=== PATIENT | male | born 2000 | race Caucasian/White ===

== ENCOUNTER 2023-12-07 20:23 | Inpatient (IN) | payer SELFPAY ==
[2023-12-07 20:24] VITALS: BP 141/85; PULSE 95; RESP 15; TEMP 37.2; O2SAT 97; BMI 27.9
--- NOTE | 2023-12-07 20:57 | ECG_ITS ---
[facility] Test Date: 2023-12-07 Pat Name: Ra Burkett Department: Room: Gender: Male Public Works Manager: : 2000 Requested By: Kahlil Lala Order Number: [id number] Cuello MD: Red Aleman M.D. Measurements Intervals [place] Rate: 54 P: 20 CT: 126 QRS: 60 QRSD: 105 T: 14 QT: 413 QTc: 393 Interpretive Statements SINUS BRADYCARDIA WITH SINUS ARRHYTHMIA No previous ECG available for comparison Electronically Signed On 12-09-2023 7:39:31 CDT by Red Aleman M.D. [email or web address]
--- NOTE | 2023-12-07 21:00 | ED_ITS ---
HPI - Alcohol 2 General: Chief Complaint: Alcohol Stated Complaint: ETOH Time Seen by Provider: 12/07/23 20:36 History of Present Illness: 23-year-old male he says he has been dri nking heavily for the last couple of weeks. Essentially constantly for the last 3 days. His last drink was 45 minutes prior to ambulance arrival and [place] which was probably around 6 PM. He is not suicidal or homicidal. He would like to stop drinking. He is feeling sick to his stomach. He has not vomited. No other medical problems. Associated symptoms: Deny abdominal pain or vomiting Related Data Home Medications Medication Instructions Recorded Confirmed No Known Home Medications 12/07/23 12/07/23 Allergies Allergy/AdvReac Type Severity Reaction Status Date / Time No Known Allergies Allergy Verified 12/07/23 20:37 Review of Systems 2 Const: Denies: fever(s), chills or body aches Eyes: Denies: change in vision Card: Denies: chest pain or palpitations Resp: Denies: dyspnea, productive cough, non-productive cough or wheezing GI: Denies: abdominal pain, vomiting, diarrhea or hematochezia Skin/Breast: Denies: rash Neuro: Denies: headache(s), weakness in extremities, dizziness or confusion Physical Exam 2 Const: COMMON NORMALS: no acute distress GENERAL APPEARANCE: cooperative and odor of alcohol detected; not in distress, not lethargic, not ill appearing and not frail appearing O RIENTATION/CONSCIOUSNESS: not lethargic HENMT: COMMON NORMALS: normocephalic, atraumatic and Normal external nose present HEAD & SCALP: normocephalic and atraumatic FACE & SINUS: normal facial exam and face symmetric NOSE: Normal external nose present Eye: COMMON NORMALS: Equal, round and reactive pupils present and EOMs intact bilaterally PUPIL: Yes Equal, round and reactive pupils present Neck/C-Spine: GENERAL: Yes trachea midline Chest: CHEST: Yes Symmetrical chest wall rise Resp: COMMON NORMALS: normal respiratory effort, No retractions, No use of accessory muscles and clear to auscultation bilaterally AUSCULTATION: clear to auscultation bilaterally Cardio: COMMON NORMALS: regular rate and regular rhythm RATE: regular rate RHYTHM: regular rhythm GI: COMMON NORMALS: Normal to inspection, nondistended, normoactive bowel sounds present Extremity: COMMON NORMALS: no pedal edema Neuro: SASKIA COMA SCALE: document GCS findings [place] coma scale eye opening: Spontaneous [place] coma scale verbal response: Orientated [place] coma scale motor response: Obey commands [place] coma scale total score: 15 S ENSORIUM/ORIENTATION: No lethargic SENSORY EXAM: Yes extremities (intact) Psych: COMMON NORMALS: speech normal SPEECH: Yes normal speech Skin: COMMON NORMALS: no rashes or lesions noted GENERAL SKIN EXAM: no rashes or lesions noted Course 2 Vital Signs: Vital signs: Vital Signs Temperature 98.0 F 12/07/23 23:43 Pulse Rate 69 12/07/23 23:43 Respiratory Rate 16 12/07/23 23:43 Blood Pressure 118/76 12/07/23 23:43 Pulse Oximetry 94 12/07/23 23:43 Oxygen Delivery Me thod Room Air 12/07/23 23:43 MDM - Alcohol Medical Decision Making 23-year-old male who is intoxicated with alcohol. Vitals are stable. CBC is normal. BMP is normal. Tylenol salicylates are negative. Liver enzymes are minimally elevated. Total bili is 0.5. Ethyl alcohol is 273. He is hydrated. Given Zofran. He is not suicidal or homicidal. He is beginning to get agitated. No significant tremor as yet. He is asking for medical detoxification from alcohol given his long history of heavy drinking. His mother is here requesting the same. Due to his risk of complications from alcohol withdrawal, he will be admitted medically to the hospital. Hospitalist is aware and will see the patient on the floor. Lab Data 12/07/23 21:28 12/07/23: Laboratory Results WBC 7.59 10^3/uL (3.29-11.43) 12/07/23 21: RBC 5.39 10^6/uL (3.85-5.65) 12/07/23: Hgb 16.40 g/dL (11.27-16.99) 12/07/23: Hct 47.0 % (37-53) 12/07/23 21: MCV 87.2 fl (82-101) 12/07/23 21: MCH 30.4 pg (27-33) 12/07/23 21: MCHC 34.9 g/dL (30-55) 12/07/23 21: RDW 11.3 % (12.1-15.1) L 12/07/23 21: Plt Count 324 10^3/cmm (157-399) 12/07/23 21: MPV 10.1 fL (7.4-10.4) 12/07/23 21: Neut % (Auto) 46.0 % 12/07/23 21: Lymph % (Auto) 44.8 % 12/07/23 21: [place] % (Auto) 6.1 % 12/07/23 21:28 Eos % (Auto) 2.2 % 12/07/23 21: Baso % (Auto) 0.8 % 12/07/23 21: Neut # (Auto) 3.49 10^3/uL (1.8-7.7) 12/07/23: Lymph # (Auto) 3.4 10^3/uL (0.8-4.8) 12/07/23 21: [place] # (Auto) 0.5 10^3/uL (0.2-0.9) 12/07/23 21: Eos # (Auto) 0.2 10^3/uL (0.0-0.8) 12/07/23 21: Baso # (Auto) 0.1 10^3/uL (0.0-0.1) 12/07/23: Nucleated RBC % (auto) 0 % 12/07/23 21: Nucleated RBCs # 0.0 /100WBC 12/07/23 21: Sodium 145 mmol/L (136-145) 12/07/23 21: Potassium 3.9 mmol/L (3.5-5.1) 12/07/23 21: Chloride 107 mmol/L (98-107) 12/07/23 21: Carbon Dioxide 23 mmol/L (22-29) 12/07/23 21: Anion Gap 18.9 (5-19) 12/07/23 21:28 BUN 12 mg/dL (6-20) 12/07/23 21: Creatinine 1.1 mg/dL (0.7-1.2) 12/07/23 21: GFR Calculation 82.2 mL/min (90-130) L 08/11/24 21:28 Glucose 105 mg/dL (65-115) 12/07/23 21:28 Calculated Osmolality 300 mOsm/kg (285-295) H 12/07/23 21:28 Calcium 9.0 mg/dL (8.5-10.5) 12/07/23 21:28 Total Bilirubin 0.5 mg/dL (0.15-1.2) 12/07/23 21:28 AST 48 U/L (0-40) H 12/07/23 21:28 ALT 51 U/L (0-41) H 12/07/23 21:28 Alkaline Phosphatase 79 U/L (40-130) 12/07/23 21:28 Total Protein 7.6 g/dL (6.6-8.7) 12/07/23 21:28 Albumin 4.7 g/dL (3.5-5.2) 12/07/23 21:28 Globulin 2.9 g/dL (1.3-4.6) 12/07/23 21:28 Salicylates < 0.3 mg/dL (3-10) L 12/07/23 21:28 Acetaminophen < 5.0 ug/mL (10-30) L 12/07/23 21:28 Ethyl Alcohol 273 mg/dL (0-10) H 12/07/23 21:28 No radiology studies performed this visit Discharge Plan Discharge Patient Disposition: Admitted As Inpatient Admit Provider: Freya Franco Clinical Impression: Alcoholic intoxication Condition: Fair Coding Level of Care Code ED Pump Erector for g Margarito
[2023-12-07 21:39] LABS: Basophils # 0.1 10^3/uL (0.0-0.1); Basophils % 0.8 %; Eosinophils # 0.2 10^3/uL (0.0-0.8); Eosinophils % 2.2 %; Lymphocytes # 3.4 10^3/uL (0.8-4.8); Lymphocytes % 44.8 %; Mean Corpuscular HGB Conc 34.9 g/dL (30-55); Mean Corpuscular Hemoglobin 30.4 pg (27-33); Mean Corpuscular Volume 87.2 fl (82-101); Mean Platelet Volume 10.1 fL (7.4-10.4); Monocytes # 0.5 10^3/uL (0.2-0.9); Monocytes % 6.1 %; Neutrophils # 3.49 10^3/uL (1.8-7.7); Nucleated Red Blood Cells % 0 %; Platelet Count 324 10^3/cmm (157-399); Red Blood Count 5.39 10^6/uL (3.85-5.65); Red Cell Distribution Width 11.3 % (12.1-15.1); White Blood Count 7.59 10^3/uL (3.29-11.43)
[2023-12-07] MEDS: ondansetron 2 mg/ML SDV 2 mL 4 MG IVP (21:48)
[2023-12-07] MEDS: sodium chloride 0.9% 1,000 ML 999 ML IV (21:48)
[2023-12-07 21:57] VITALS: BP 112/67; PULSE 82; RESP 16; O2SAT 94
[2023-12-07 22:01] LABS: Alanine Aminotransferase 51 U/L (0-41); Albumin Level 4.7 g/dL (3.5-5.2); Alcohol Level 273 mg/dL (0-10); Alkaline Phosphatase 79 U/L (40-130); Anion Gap 18.9 (5-19); Aspartate Amino Transferase 48 U/L (0-40); Blood Urea Nitrogen 12 mg/dL (6-20); Carbon Dioxide 23 mmol/L (22-29); Chloride 107 mmol/L (98-107); Creatinine Clr Calc Pharmacy 115.9713; Globulin 2.9 g/dL (1.3-4.6); Glomerular Filtration Rate 82.2 mL/min (90-130); Glucose 105 mg/dL (65-115); Osmolality Calculated 300 mOsm/kg (285-295); Potassium 3.9 mmol/L (3.5-5.1); Sodium 145 mmol/L (136-145); Total Bilirubin 0.5 mg/dL (0.15-1.2); Total Protein 7.6 g/dL (6.6-8.7)
[2023-12-07 22:07] LABS: Acetaminophen < 5.0 ug/mL (10-30); Salicylate < 0.3 mg/dL (3-10)
[2023-12-07 23:00] VITALS: PULSE 81; RESP 18; O2SAT 97
[2023-12-07] MEDS: LORazepam 2 mg/mL INJ 1 mL IVP (23:11)
[2023-12-07] MEDS: haloperidol inj 5 mg/mL INJ 1 mL 3 MG IVP (23:13)
[2023-12-07 23:27] LABS: Charge for UA Resulting for Rev
[2023-12-07 23:31] LABS: Bilirubin Urine Negative (Negative); Blood Urine Negative (Negative); Glucose Urine UA Negative (Normal); Ketones Urine Negative (Negative); Leukocyte Esterase Urine Negative (Negative); Nitrate Urine Negative (Negative); Protein Urine Trace (Negative); Specific Gravity, Urine 1.019 (1.005-1.030); Urine Appearance Cloudy (CLEAR); Urine Color Yellow (Yellow); pH Urine 8.5 (5-7)
[2023-12-07 23:36] LABS: Bacteria Urine None Seen /hpf; RBC Urine 0-2 /hpf (0-2); Squamous Epithelial Cell Urine 0-5 /hpf (0-5); WBC Urine 0-5 /hpf (0-5)
[2023-12-07 23:38] LABS: Amphetamines Screen Urine Negative (Negative); Barbiturates Screen Urine Negative (Negative); Benzodiazepines Screen Urine Negative (Negative); Cocaine Screen Urine Negative (Negative); Opiate Screen Urine Negative (Negative); PCP Screen Urine Negative (Negative); THC Screen Urine Negative (Negative)
[2023-12-07 23:43] VITALS: BP 118/76; PULSE 69; RESP 16; TEMP 36.7; O2SAT 94
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
--- NOTE | 2023-12-08 02:25 | PC.NURSE ---
Pt transferred to CT at this time, will await return to room.
[2023-12-08] MEDS: chlordiazePOXIDE 25 mg Capsule PO (02:39)
[2023-12-08] MEDS: sodium chloride 0.9% 1,000 ML 75 ML IV ×2 (02:53→15:27)
--- NOTE | 2023-12-08 03:06 | PC.NURSE ---
Pt returned from CT w/o difficulty. Pt's mother remains at bedside.
[2023-12-08 04:00] VITALS: BP 117/65; PULSE 78; RESP 19; TEMP 36.8; O2SAT 97
[2023-12-08 04:28] LABS: Basophils # 0.1 10^3/uL (0.0-0.1); Basophils % 0.6 %; Eosinophils # 0.4 10^3/uL (0.0-0.8); Eosinophils % 4.9 %; Hematocrit 44.4 % (37-53); Lymphocytes # 4.1 10^3/uL (0.8-4.8); Lymphocytes % 51.8 %; Mean Corpuscular HGB Conc 33.3 g/dL (30-55); Mean Corpuscular Hemoglobin 30.2 pg (27-33); Mean Corpuscular Volume 90.6 fl (82-101); Mean Platelet Volume 10.6 fL (7.4-10.4); Monocytes # 0.6 10^3/uL (0.2-0.9); Monocytes % 7.4 %; Neutrophils # 2.78 10^3/uL (1.8-7.7); Neutrophils % 35.2 %; Nucleated Red Blood Cells % 0 %; Platelet Count 280 10^3/cmm (157-399); Red Cell Distribution Width 11.3 % (12.1-15.1); White Blood Count 7.93 10^3/uL (3.29-11.43)
[2023-12-08 04:44] LABS: Alanine Aminotransferase 42 U/L (0-41); Albumin Level 4.4 g/dL (3.5-5.2); Alkaline Phosphatase 66 U/L (40-130); Anion Gap 18.6 (5-19); Aspartate Amino Transferase 42 U/L (0-40); Blood Urea Nitrogen 12 mg/dL (6-20); Calcium 8.5 mg/dL (8.5-10.5); Carbon Dioxide 22 mmol/L (22-29); Chloride 109 mmol/L (98-107); Creatinine Clr Calc Pharmacy 123.3589; Globulin 2.2 g/dL (1.3-4.6); Glomerular Filtration Rate 91.8 mL/min (90-130); Glucose 87 mg/dL (65-115); Osmolality Calculated 301 mOsm/kg (285-295); Potassium 3.6 mmol/L (3.5-5.1); Sodium 146 mmol/L (136-145); Total Bilirubin 0.6 mg/dL (0.15-1.2); Total Protein 6.6 g/dL (6.6-8.7)
[2023-12-08 04:59] LABS: Hepatitis A Antibody IgM Non-Reactive (Nonreactive); Hepatitis B Core AB, Total Non-Reactive (Nonreactive); Hepatitis B Surface AB < 3.5 (11.5-1000); Hepatitis B Surface Antigen Non-Reactive (Nonreactive); Hepatitis C Virus Antibody Non-Reactive (Nonreactive)
[2023-12-08 05:14] LABS: HIV 1 & 2 Antibody Non-Reactive (Non-Reactiv); HIV 1 & 2 Antigen Non-Reactive (Non-Reactiv)
[2023-12-08 07:24] VITALS: BP 133/75; PULSE 93; RESP 16; TEMP 36.8; O2SAT 96
[2023-12-08] MEDS: ondansetron 2 mg/ML SDV 2 mL 4 MG IVP ×3 (07:40→18:25)
[2023-12-08] MEDS: LORazepam 2 mg/mL INJ 1 mL IVP ×3 (07:58→11:59)
[2023-12-08] MEDS: multivitamin therapeutic Tablet 1 TAB PO (09:16)
[2023-12-08] MEDS: pantoprazole DR 40 mg Tablet PO (09:16)
[2023-12-08] MEDS: folic acid 1 mg Tablet PO (09:16)
[2023-12-08] MEDS: thiamine 100 mg Tablet PO (09:16)
--- NOTE | 2023-12-08 11:01 | W.PM.EVENTAC ---
Event Note Event Note: History and physical reviewed. Monitor and treat withdrawal. Discussed with discharge planning need for rehabilitation options. They will be discussing with patient and patient's family support. Repeat laboratory tomorrow.
[2023-12-08 11:55] VITALS: BP 124/61; PULSE 103; RESP 18; TEMP 36.8; O2SAT 98
[2023-12-08 15:17] VITALS: BP 105/66; PULSE 82; RESP 16; TEMP 36.8; O2SAT 96
[2023-12-08 19:41] VITALS: BP 123/71; PULSE 71; RESP 20; TEMP 36.8; O2SAT 96
[2023-12-09] VITALS: BP 105/58; PULSE 54; RESP 16; TEMP 36.6; O2SAT 94
[2023-12-09] MEDS: sodium chloride 0.9% 1,000 ML 75 ML IV (03:46)
[2023-12-09 04:00] VITALS: BP 152/71; PULSE 71; RESP 20; TEMP 36.7; O2SAT 96
[2023-12-09 05:34] LABS: Basophils # 0.1 10^3/uL (0.0-0.1); Basophils % 0.9 %; Eosinophils # 0.5 10^3/uL (0.0-0.8); Eosinophils % 6.9 %; Hematocrit 45.5 % (37-53); Lymphocytes # 2.6 10^3/uL (0.8-4.8); Mean Corpuscular Hemoglobin 31.3 pg (27-33); Mean Corpuscular Volume 94.8 fl (82-101); Mean Platelet Volume 10.2 fL (7.4-10.4); Monocytes # 0.7 10^3/uL (0.2-0.9); Monocytes % 10.3 %; Neutrophils % 44.8 %; Nucleated Red Blood Cells % 0 %; Platelet Count 174 10^3/cmm (157-399); Red Cell Distribution Width 10.9 % (12.1-15.1); White Blood Count 6.92 10^3/uL (3.29-11.43)
[2023-12-09 07:27] VITALS: BP 118/62; PULSE 68; RESP 15; TEMP 37.1; O2SAT 96
[2023-12-09 07:44] LABS: Alanine Aminotransferase 32 U/L (0-41); Albumin Level 4.1 g/dL (3.5-5.2); Alkaline Phosphatase 85 U/L (40-130); Aspartate Amino Transferase 35 U/L (0-40); Blood Urea Nitrogen 10 mg/dL (6-20); Calcium 8.6 mg/dL (8.5-10.5); Carbon Dioxide 24 mmol/L (22-29); Chloride 107 mmol/L (98-107); Creatinine Clr Calc Pharmacy 113.0813; Globulin 2.3 g/dL (1.3-4.6); Glomerular Filtration Rate 82.2 mL/min (90-130); Glucose 101 mg/dL (65-115); Magnesium 1.8 mg/dL (1.7-2.3); Osmolality Calculated 287 mOsm/kg (285-295); Sodium 139 mmol/L (136-145); Total Bilirubin 1.4 mg/dL (0.15-1.2); Total Protein 6.4 g/dL (6.6-8.7)
[2023-12-09] MEDS: thiamine 100 mg Tablet PO (08:26)
[2023-12-09] MEDS: multivitamin therapeutic Tablet 1 TAB PO (08:26)
[2023-12-09] MEDS: folic acid 1 mg Tablet PO (08:26)
[2023-12-09] MEDS: pantoprazole DR 40 mg Tablet PO (08:26)
--- NOTE | 2023-12-09 09:15 | PC.CHAP ---
Pastoral Care Encounter/Spiritual Assessment Type of Contact [] Declined honey liquefier visit [] Patient/Family/Request visit [] Outpatient visit [] Follow-up visit [] Physician referral [] Code/Alert [x] Routine visit [] Staff referral [] Actively dying [] Patient sleeping [x] Family support [] [] Out of room [] Palliative care [] [] Receiving care in room [] Pre-surgical visit [] Trauma [] Long length of stay [] ICU visit [] Other: Relational/Emotional Strength [x] Patient feels connected with others/family/visitors/staff [] Distress [] Loneliness/isolation [] Abandonment Spirituality of Patient [x] Person of Shazia [] Attends Rastafari of their Shazia [x] Believes in Prayer [] Reads Bible or Uatsdin materials [] There are Spiritual issues to be addressed [employer] Interventions [x] Prayer [x] Active listening [] Non-anxious presence [x] Spiritual/emotional support [] Crisis/trauma care [] Spiritual counseling [] Bereavement support [] Provided bereavement packet [] Provided Bible/devotional materials [] Provided toy/stuffed animal, coloring book to patient or family member [] Provided Communion [] Anointing/Adrian [] Salvation [x] Completed spiritual assessment [] Other: Impact on Illness or Injury [] Angry [] Fearful [] Anxious [] Often cries [] Exhaustion [] Unable to work [] Unable to attend adventist [] Unable to walk/stand [] Unable to read [] Unable to drive [] Unable to eat/drink [] Unable to sleep [] Unable to be with family [] Patient intubated [] Other: Summary Time spent with patient 5 min
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
[2023-12-09 10:36] VITALS: BP 118/62; PULSE 68; RESP 15; TEMP 37.1; O2SAT 96
== END 2023-12-09 10:00 | disposition home or self-care (01) | DRG 897 ==
LOC: ER 22:11 → MEDSURG 23:12
PROVIDERS: Admitting Provider Student in an Organized Health Care Education/Training Program; Emergency Provider Emergency Medicine; Visit Provider Internal Medicine
DX: F10.129 Alcohol abuse with intoxication, unspecified (principal); Y90.8 Blood alcohol level of 240 mg/100 ml or more; R74.01 Elevation of levels of liver transaminase levels; V57.0XXA Driver of pick-up truck or van injured in collision with fixed or stationary object in nontraffic accident, initial encounter
CPT/HCPCS: 36415; 70450; 71250; 72125; 74176; 80053; 80306; 80307; 81003; 81015; 83735; 85025; 86705; 86706; 86709; 86803; 87340; 87806; 93005; 96361; 96372; 96374; 96375; 99285; J1630; J2060; J2405; J3411; J7030